=== PATIENT | female | born 1995 ===

== ENCOUNTER 2016-12-18 16:57 | Emergency (ER) | payer MEDICAID, OTHER ==
[2016-12-18 17:34] VITALS: BP 108/71; PULSE 79; RESP 16; TEMP 98; O2SAT 100
--- NOTE | 2016-12-18 17:37 | ED PDOC ---
HPI: CCC, URI, Sore Throat Time Seen by Provider: 12/18/16 17:17 Chief Complaint (Nursing): ENT Problem Chief Complaint (Provider): Sore throat History Per: Patient History/Exam Limitations: no limitations Have you had recent travel within the past 21 days to any of the following countries: [place], [place], [place] or [place]?: No Onset/Duration Of Symptoms: Persistent Current Symptoms Are (Timing): Still Present Location Of Pain: Throat Sick Contacts (Context): None Associated Symptoms: Sore Throat. denies: Fever Additional History Per: Patient Additional Complaint(s): The pt is a 21yo female, presents to the ED for evaluation of sore throat present for the past month. Pt denies any fever or chills. She denies taking any OTC medications for her symptoms. She offers no other medical complaints. Past Medical History Reviewed: Historical Data, Nursing Documentation, Vital Signs Vital Signs: Last Vital Signs Temp 98.0 F 12/18/16 17:32 Pulse 79 12/18/16 17:32 Resp 16 12/18/16 17:32 BP 108/71 12/18/16 17:32 Pulse Ox 100 12/18/16 17:37 - Medical History PMH: No Chronic Diseases - Surgical History Surgical History: No Surg Hx - Family History Family History: States: Unknown Family Hx - Social History Current smoker - smoking cessation education provided: Yes (habitual smoker) Drugs: Cannabis - Home Medications Home Medications: Ambulatory Orders Medication Instructions Recorded Cetirizine HCl [Zyrtec Allergy] 10 mg PO DAILY #30 sgl 12/18/16 Prednisone 50 mg PO DAILY #2 tablet 12/18/16 - Allergies Allergies/Adverse Reactions: Allergies Allergy/AdvReac Type Severity Reaction Status Date / Time No Known Allergies Allergy Verified 12/18/16 17:32 Review of Systems ROS Statement: Except As Marked, All Systems Reviewed And Found Negative Constitutional: Negative for: Fever, Chills ENT: Positive for: Throat Pain Physical Exam - Reviewed Nursing Documentation Reviewed: Yes Vital Signs Reviewed: Yes - Physical Exam Appears: Positive for: Well, Non-toxic, No Acute Distress Head Exam: Positive for: ATRAUMATIC, NORMAL INSPECTION, NORMOCEPHALIC Skin: Positive for: Normal Color ENT: Positive for: Normal ENT Inspection Neck: Positive for: Normal Cardiovascular/Chest: Positive for: Regular Rate, Rhythm Respiratory: Positive for: Normal Breath Sounds. Negative for: Respiratory Distress Neurologic/Psych: Positive for: Alert, Oriented - ECG O2 Sat by Pulse Oximetry: 100 (RA) Pulse Ox Interpretation: Normal Medical Decision Making Medical Decision Making: Time: 1729 Impression: Sore throat r/o strep Plan: -- Throat culture Scribe Attestation: Documented by Eduarda Martínez, acting as a scribe for JOEY Rocha Provider Attestation: All medical record entries made by the Scribe were at my direction and personally dictated by me. I have reviewed the chart and agree that the record accurately reflects my personal performance of the history, physical exam, medical decision making, and the department course for this patient. I have also personally directed, reviewed, and agree with the discharge instructions and disposition. Disposition - Clinical Impression Clinical Impression: Throat pain - Disposition Disposition: Routine/Home Disposition Time: 18:00 Condition: GOOD Prescriptions: Cetirizine HCl [Zyrtec Allergy] 10 mg PO DAILY #30 sgl Prednisone 50 mg PO DAILY #2 tablet Instructions: Pharyngitis (ED)
== END 2016-12-18 18:47 | disposition home or self-care (01) ==
LOC: H.ER 16:57
DX: J02.9 Acute pharyngitis, unspecified (principal)

== ENCOUNTER 2016-12-28 12:44 | Emergency (ER) | payer OTHER ==
[2016-12-28 13:03] VITALS: BP 134/70; RESP 19; TEMP 98.3; O2SAT 100
[2016-12-28] MEDS ORDERED: Naproxen 500 MG TAB PO ONE (13:17)
--- NOTE | 2016-12-28 13:26 | ED PDOC ---
HPI: Chest Pain Time Seen by Provider: 12/28/16 13:08 Chief Complaint (Nursing): ENT Problem Chief Complaint (Provider): Right Sided Chest Pain History Per: Patient History/Exam Limitations: no limitations Onset/Duration Of Symptoms: Other (1 month) Current Symptoms Are (Timing): Still Present Exacerbating Factors: Other (Worsens with deep inspiration and movement.) Additional Complaint(s): Barbara Felix, a 21 year old female, presents to the ED with constant right sided chest pain that worsens with inspiration and movement. The patient further states that the pain also worsens when she lifts both her arms above her head but it is much worse with the right arm. She also reports that she had a throat culture done 2 weeks ago and she is requesting her results. Patient states the sore throat has resolved. Denies history of prior thromboembolic disease, hemoptysis, recent surgery, palpitation, shortness of breath, limb pain, hormonal therapy and control use. - Risk Factors PE Risk Factors: Neg: Recent Major Surgery Past Medical History Reviewed: Historical Data, Nursing Documentation, Vital Signs Vital Signs: Last Vital Signs Temp 98.3 F 12/28/16 13:00 Pulse 98 H 12/28/16 13:00 Resp 19 12/28/16 13:00 BP 134/70 12/28/16 13:00 Pulse Ox 100 12/28/16 13:41 - Medical History PMH: No Chronic Diseases - Family History Family History: States: Unknown Family Hx - Home Medications Home Medications: Ambulatory Orders Medication Instructions Recorded Cetirizine HCl [Zyrtec Allergy] 10 mg PO DAILY #30 sgl 12/18/16 Prednisone 50 mg PO DAILY #2 tablet 12/18/16 Naproxen [Naprosyn] 500 mg PO BID PRN #14 tab 12/28/16 - Allergies Allergies/Adverse Reactions: Allergies Allergy/AdvReac Type Severity Reaction Status Date / Time No Known Allergies Allergy Verified 12/28/16 12:58 Wells Criteria for PE - Wells Criteria for Pulmonary Embolism Clinical Signs and Symptoms of DVT: No P.E is #1 Diagnosis, or Equally Likely: No Heart Rate >100: No Immobilization at least 3 days;Surgery previous 4 weeks: No Previous, objectively diagnosed PE or DVT: No Hemoptysis: No Malignancy w/treatment within 6 months, or palliative: No Total Score: 0 Review of Systems Cardiovascular: Positive for: Chest Pain (Right sided chest pain). Negative for : Palpitations Respiratory: Negative for: Shortness of Breath, Hemoptysis Physical Exam - Reviewed Nursing Documentation Reviewed: Yes Vital Signs Reviewed: Yes - Physical Exam Appears: Positive for: Non-toxic, No Acute Distress Head Exam: Positive for: ATRAUMATIC, NORMOCEPHALIC Skin: Positive for: Normal Color, Warm, Dry. Negative for: Rash (No rash to chest area.) Cardiovascular/Chest: Positive for: Regular Rate, Rhythm. Negative for: Chest Non Tender (Tenderness to right anterior chest wall.), Murmur, Tachycardia Respiratory: Positive for: Normal Breath Sounds. Negative for: Wheezing, Respiratory Distress Extremity: Negative for: Calf Tenderness (b/l) - ECG ECG: Positive for: Interpreted By Me ECG Rhythm: Positive for: Sinus Rhythm. Negative for: ST/T Changes Rate: 88 O2 Sat by Pulse Oximetry: 100 (RA) Pulse Ox Interpretation: Normal - Radiology X-Ray: Interpreted by Me (CXR) X-Ray Interpretation: No Acute Disease - Progress ED Course And Treament: Pt. instructed to f/u with [facility] for further evaluation but is to return to ED immediately if symptoms worsen or persist. Medical Decision Making Medical Decision Makin:08 Initial Impression: 21 year old female presenting with right sided chest pain Initial Plan: * Upreg * CXR (PA&LAT) * Naproxen 500mg PO Scribe Attestation Documented by Delfina Dia acting as a scribe for Richmond Vieira PA-C. Scribe Attestation All medical record entries made by the Scribe were at my direction and personally dictated by me. I have reviewed the chart and agree that the record accurately reflects my personal performance of the history, physical exam, medical decision making, and the department course for this patient. I have also personally directed, reviewed, and agree with the discharge instructions and disposition. Disposition - Clinical Impression Clinical Impression: Chest wall pain - Patient ED Disposition Is Patient to be Admitted: No - Disposition Referrals: [facility] [Outside] Disposition: Routine/Home Disposition Time: 14:00 Condition: STABLE Prescriptions: Naproxen [Naprosyn] 500 mg PO BID PRN #14 tab PRN Reason: Pain Instructions: Chest Wall Pain (ED) Print Language: EMIRATI
[2016-12-28 14:01] VITALS: PULSE 88
--- NOTE | 2016-12-28 14:59 | RAD ---
HISTORY: chest pain COMPARISON: No prior. TECHNIQUE: Chest PA and lateral FINDINGS: LUNGS: No active pulmonary disease. PLEURA: No significant pleural effusion identified. No pneumothorax apparent. CARDIOVASCULAR: Normal. OSSEOUS STRUCTURES: No significant abnormalities. VISUALIZED UPPER ABDOMEN: Normal. OTHER FINDINGS: None. IMPRESSION: No active disease.
== END 2016-12-28 15:24 | disposition home or self-care (01) ==
LOC: H.ER 12:44
DX: R07.89 Other chest pain (principal); M25.511 Pain in right shoulder

== ENCOUNTER 2017-03-21 23:47 | Emergency (ER) | payer OTHER ==
[2017-03-21 23:57] VITALS: BP 130/86; PULSE 76; RESP 18; TEMP 98.4; O2SAT 100
--- NOTE | 2017-03-22 00:19 | ED PDOC ---
HPI: General Adult Time Seen by Provider: 03/22/17 00:00 Chief Complaint (Nursing): Rib Injury Chief Complaint (Provider): Rib Injury History Per: Patient History/Exam Limitations: no limitations Onset/Duration Of Symptoms: Days (1x day) Current Symptoms Are (Timing): Still Present Severity: Moderate Additional Complaint(s): 21 year old female with no pertinent medical history presents to the ED with complaints of right rib cage pain that started today. She reports that 1x month ago, she was squeezed too hard and felt a crack and pain in her left rib cage. Today she had a choking episode in which she felt the same pain in her left rib. She reports having pain in the area when she inhales deeply. She denies having any other medical complaints. PMD: Not provided. Past Medical History Reviewed: Historical Data, Nursing Documentation, Vital Signs Vital Signs: Last Vital Signs Temp 98.4 F 03/21/17 23:54 Pulse 76 03/21/17 23:54 Resp 18 03/21/17 23:54 BP 130/86 03/21/17 23:54 Pulse Ox 100 03/22/17 00:50 - Medical History PMH: No Chronic Diseases - Family History Family History: States: No Known Family Hx - Social History Alcohol: None Drugs: Denies - Home Medications Home Medications: Ambulatory Orders Medication Instructions Recorded Cetirizine HCl [Zyrtec Allergy] 10 mg PO DAILY #30 sgl 12/18/16 Prednisone 50 mg PO DAILY #2 tablet 12/18/16 Naproxen [Naprosyn] 500 mg PO BID PRN #14 tab 12/28/16 Cyclobenzaprine [Cyclobenzaprine 10 mg PO BID #15 tab 03/22/17 HCl] Ibuprofen [Motrin Tab] 600 mg PO Q6 #30 tab 03/22/17 - Allergies Allergies/Adverse Reactions: Allergies Allergy/AdvReac Type Severity Reaction Status Date / Time No Known Allergies Allergy Verified 12/28/16 12:58 Review of Systems ROS Statement: Except As Marked, All Systems Reviewed And Found Negative Musculoskeletal: Positive for: Other (left rib cage pain) Physical Exam - Reviewed Nursing Documentation Reviewed: Yes Vital Signs Reviewed: Yes - Physical Exam Appears: Positive for: Well, Non-toxic, No Acute Distress Head Exam: Positive for: ATRAUMATIC, NORMOCEPHALIC Skin: Positive for: Normal Color Cardiovascular/Chest: Positive for: Regular Rate, Rhythm, Chest Non Tender Respiratory: Positive for: Normal Breath Sounds. Negative for: Respiratory Distress, Other (no crepitus, no bruising) Neurologic/Psych: Positive for: Alert, Oriented (3x) - ECG O2 Sat by Pulse Oximetry: 100 (RA) Pulse Ox Interpretation: Normal Medical Decision Making Medical Decision Makin:00 Initial impression: 21 year old female with rib contusion. Initial plan: * XRay ribs 2 views lt * flexeril 10 mg PO * motrin tab 600 mg PO * reevaluation 00:50 Neg CXR, patient feeling better, will d/c home. Return precautions given. Scribe Attestation: Documented by Delia Meyer, acting as a scribe for Nabil Lomas MD. Provider Scribe Attestation: All medical record entries made by the Scribe were at my direction and personally dictated by me. I have reviewed the chart and agree that the record accurately reflects my personal performance of the history, physical exam, medical decision making, and the department course for this patient. I have also personally directed, reviewed, and agree with the discharge instructions and disposition. Disposition - Clinical Impression Clinical Impression: Rib pain - Disposition Referrals: [facility] [Outside] Disposition: Routine/Home Disposition Time: 00:51 Condition: STABLE Prescriptions: Cyclobenzaprine [Cyclobenzaprine HCl] 10 mg PO BID #15 tab Ibuprofen [Motrin Tab] 600 mg PO Q6 #30 tab Forms: [employer] (Tuvaluan)
--- NOTE | 2017-03-22 10:51 | RAD ---
PROCEDURE: Radiographs of the Chest and Left Ribs. HISTORY: Left rib pain COMPARISON: 12/28/2016. TECHNIQUE: Frontal radiograph of the chest and multiple oblique radiographs of the left ribs were obtained. FINDINGS: LEFT RIBS: No acute fracture or focal lesion visualized. LUNGS: The lungs are well inflated and clear. PLEURA: No pneumothorax or pleural fluid. CARDIOVASCULAR: Normal sized heart. No pulmonary vascular congestion. OTHER FINDINGS: None. IMPRESSION: No acute rib fracture. Clear lungs.
== END 2017-03-22 01:32 | disposition home or self-care (01) ==
LOC: H.ER 23:47
DX: R07.82 Intercostal pain (principal)

== ENCOUNTER 2017-08-16 18:28 | Emergency (ER) | payer OTHER ==
[2017-08-16 19:30] VITALS: BP 117/86; PULSE 102; RESP 18; TEMP 98.3; O2SAT 99
[2017-08-16] MEDS ORDERED: Naproxen 500 MG TAB PO STA (20:25)
--- NOTE | 2017-08-16 20:30 | ED PDOC ---
Upper Extremity Pain/Injury Time Seen by Provider: 08/16/17 19:35 Chief Complaint (Nursing): Upper Extremity Problem/Injury Chief Complaint (Provider): Wrist pain History Per: Patient History/Exam Limitations: no limitations Onset/Duration Of Symptoms: Days (x3) Current Symptoms Are (Timing): Still Present Additional Complaint(s): Patient presents complaining of left wrist pain for the past 2-3 days. States she started playing the guitar for 30 minutes daily. 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 No direct trauma or injury. (-) numbness; (-) weakness. Additionally, patient reports left mid back pain which she has had intermittently in the past. Current episode began 2 days ago. No trauma or injury. Otherwise: (-) paresthesias, (-) weakness, (-) acute bowel or bladder dysfunction, (-) fever. PMD: None Past Medical History Reviewed: Historical Data, Nursing Documentation, Vital Signs Vital Signs: Last Vital Signs Temp 98.3 F 08/16/17 19:25 Pulse 102 H 08/16/17 19:25 Resp 18 08/16/17 19:25 BP 117/86 08/16/17 19:25 Pulse Ox 99 08/16/17 19:25 - Medical History PMH: No Chronic Diseases - Family History Family History: States: Unknown Family Hx - Home Medications Home Medications: Ambulatory Orders Medication Instructions Recorded Cetirizine HCl [Zyrtec Allergy] 10 mg PO DAILY #30 sgl 12/18/16 Prednisone 50 mg PO DAILY #2 tablet 12/18/16 Naproxen [Naprosyn] 500 mg PO BID PRN #14 tab 12/28/16 Cyclobenzaprine [Cyclobenzaprine 10 mg PO BID #15 tab 03/22/17 HCl] Ibuprofen [Motrin Tab] 600 mg PO Q6 #30 tab 03/22/17 Naproxen 500 mg PO BID #30 tab 08/16/17 - Allergies Allergies/Adverse Reactions: Allergies Allergy/AdvReac Type Severity Reaction Status Date / Time No Known Allergies Allergy Verified 08/16/17 19:25 Review of Systems ROS Statement: Except As Marked, All Systems Reviewed And Found Negative Constitutional: Negative for: Fever Genitourinary Female: Negative for: Incontinence Musculoskeletal: Positive for: Back Pain, Hand Pain (left wrist) Neurological: Negative for: Weakness, Numbness (or paresthesias) Physical Exam - Reviewed Nursing Documentation Reviewed: Yes Vital Signs Reviewed: Yes - Physical Exam Comments: GENERAL APPEARANCE: Patient is awake, alert, oriented x 3, in no acute distress. SKIN: Warm, dry; (-) cyanosis. EYES: (-) conjunctival pallor. ENMT: Mucous membranes moist. NECK: (-) tenderness, (-) stiffness, (-) lymphadenopathy. CHEST AND RESPIRATORY: (-) rales, (-) rhonchi, (-) wheezes; breath sounds equal bilaterally. HEART AND CARDIOVASCULAR: (-) irregularity; (-) murmur, (-) gallop. ABDOMEN AND GI: Soft; (-) tenderness; (-) palpable mass. BACK: (-) muscular spasm, (-) direct bony tenderness, (-) deformity. Straight leg raising (-) bilaterally. WRIST: (-) Tenderness, (-) swelling, (-) ecchymosis, (-) deformity. (-) snuff -box tenderness. (-) distal neurovascular deficit. Elbow, hand and digits: (- ) tenderness with full ROM NEURO AND PSYCH: Mental status as above. Intact sensation bilaterally; normal strength in extension of the knees, plantar and dorsiflexion of the toes. DTRs symmetric. - ECG O2 Sat by Pulse Oximetry: 99 (RA) Pulse Ox Interpretation: Normal Medical Decision Making Medical Decision Making: Time: 20:25 Plan: * Naproxen 500mg x1 Pre-made cock-up splint applied to left wrist. Based on history and exam, plan will be for outpatient follow up. Advised to follow up with the clinic in 1-2 days without fail. Advised to take medication as prescribed. Return to the emergency room at any time for any new or worsening symptoms. Patient states she fully agrees with and understands discharge instructions. States that she agrees with the plan and disposition. Verbalized and repeated discharge instructions and plan. I have given the patient opportunity to ask any additional questions. Scribe Attestation: Documented by Kiley Coats, acting as a scribe for Ashley Gordon PA-C Provider Scribe Attestation: All medical record entries made by the Scribe were at my direction and personally dictated by me. I have reviewed the chart and agree that the record accurately reflects my personal performance of the history, physical exam, medical decision making, and the department course for this patient. I have also personally directed, reviewed, and agree with the discharge instructions and disposition. Disposition - Clinical Impression Clinical Impression: Wrist pain, Back pain - Patient ED Disposition Is Patient to be Admitted: No Counseled Patient/Family Regarding: Diagnosis, Need For Followup, Rx Given - Disposition Referrals: [facility] [Outside] Luis Herrera III, MD [Staff Provider] - Disposition: Routine/Home Disposition Time: 20:33 Condition: STABLE Additional Instructions: Thank you for letting us take care of you today. You were treated for wrist pain , back pain. The emergency medical care you received today was directed at your acute symptoms. If you were prescribed any medication, please fill it and take as directed. It may take several days for your symptoms to resolve. Return to the Emergency Department if your symptoms worsen, do not improve, or if you have any other problems. Please contact one of the physicians/clinics you have been referred to that are listed on the Patient Visit Information form that is included in your discharge packet. Bring any paperwork you were given at discharge with you along with any medications you are taking to your follow up visit. Our treatment cannot replace ongoing medical care by a primary care provider (PCP) outside of the emergency department. Thank you for allowing the [employer] team to be part of your care today. Prescriptions: Naproxen 500 mg PO BID #30 tab Instructions: Carpal Tunnel Syndrome (ED), Acute Low Back Pain (ED), Arthralgia (ED) Forms: [employer] (Slovenian), [facility] ED School/Work Excuse - POA Present On Arrival: None - PA / ORDER ENTRY SPECIALIST / Resident Statement MD/DO has reviewed & agrees with the documentation as recorded.
[2017-08-16] MEDS ORDERED: Naproxen 500 MG TAB PO ONE (20:43)
== END 2017-08-16 21:00 | disposition home or self-care (01) ==
LOC: H.ER 18:28
DX: G56.02 Carpal tunnel syndrome, left upper limb (principal); M54.5 Low back pain

== ENCOUNTER 2017-11-08 19:00 | Emergency (ER) | payer OTHER ==
[2017-11-08 19:11] VITALS: RESP 16; O2SAT 100
[2017-11-08] MEDS ORDERED: Lidocaine 5% Patch TD STA (20:16)
--- NOTE | 2017-11-08 20:33 | ED PDOC ---
Lower Extremity Pain/Injury Time Seen by Provider: 11/08/17 19:16 Chief Complaint (Nursing): Lower Extremity Problem/Injury Chief Complaint (Provider): Lower Extremity Problem/Injury History Per: Patient History/Exam Limitations: no limitations Onset/Duration Of Symptoms: Days (x3) Current Symptoms Are (Timing): Still Present Additional Complaint(s): 22 year old female presents to the emergency department for gradual onset of left leg pain, localized to her posterior left thigh and knee, ongoing for 3 days. She reports hiking yesterday, in which, she developed numbness to her posterior left calf but has since resolved on its own. 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 Patient also reports experiencing lower back pain for 2-3 months and evaluated by xrays " that were normal". She was recommended at the time to practice back exercises and to resume regular activities. PMD: none provided Past Medical History Reviewed: Historical Data, Nursing Documentation, Vital Signs Vital Signs: Last Vital Signs Temp 98.0 F 11/08/17 19:09 Pulse 107 H 11/08/17 19:09 Resp 16 11/08/17 19:09 BP 138/76 11/08/17 19:09 Pulse Ox 100 11/08/17 19:09 - Medical History PMH: Migraine - Surgical History Surgical History: No Surg Hx - Family History Family History: States: Unknown Family Hx - Social History Alcohol: Occasional Drugs: Cannabis - Home Medications Home Medications: Ambulatory Orders Medication Instructions Recorded Cetirizine HCl [Zyrtec Allergy] 10 mg PO DAILY #30 sgl 12/18/16 Prednisone 50 mg PO DAILY #2 tablet 12/18/16 Naproxen [Naprosyn] 500 mg PO BID PRN #14 tab 12/28/16 Cyclobenzaprine [Cyclobenzaprine 10 mg PO BID #15 tab 03/22/17 HCl] Ibuprofen [Motrin Tab] 600 mg PO Q6 #30 tab 03/22/17 Naproxen 500 mg PO BID #30 tab 08/16/17 Acetaminophen [Tylenol Extra 1,000 mg PO Q6 PRN #100 tablet 11/08/17 Strength] Cyclobenzaprine [Flexeril] 5 mg PO Q8 PRN #15 tab 11/08/17 Ketorolac Tromethamine [Toradol] 10 mg PO Q8 PRN #30 tab 11/08/17 Lidocaine 5% [Lidoderm] 1 ea TD DAILY PRN #10 patch 11/08/17 - Allergies Allergies/Adverse Reactions: Allergies Allergy/AdvReac Type Severity Reaction Status Date / Time No Known Allergies Allergy Verified 11/08/17 19:09 Review of Systems ROS Statement: Except As Marked, All Systems Reviewed And Found Negative Musculoskeletal: Positive for: Back Pain (lower), Leg Pain (left-sided knee and thigh) Neurological: Positive for: Numbness (left posterior calf-resolved) Physical Exam - Reviewed Nursing Documentation Reviewed: Yes Vital Signs Reviewed: Yes - Physical Exam Appears: Positive for: Non-toxic, No Acute Distress Head Exam: Positive for: ATRAUMATIC, NORMOCEPHALIC Skin: Positive for: Warm, Dry Eye Exam: Positive for: EOMI, PERRL Respiratory: Negative for: Accessory Muscle Use, Respiratory Distress Gastrointestinal/Abdominal: Positive for: Soft. Negative for: Tenderness Back: Positive for: Vertebral Tenderness (paraspinal, midline, lumbar (mildly) to palpation), Other ((+)left-sided straight leg raise without step-off or crepitus). Negative for: L CVA Tenderness, R CVA Tenderness Extremity: Positive for: Normal ROM (5/5 strenth with sensation intact lower ext.). Negative for: Deformity Neurologic/Psych: Positive for: Alert, Gait (steady). Negative for: Motor/ Sensory Deficits - ECG O2 Sat by Pulse Oximetry: 100 (RA) Pulse Ox Interpretation: Normal Medical Decision Making Medical Decision Making: Initial Impression: Lumbar Radiculopathy Initial Plan: * Urine * Urine dipstick * Flexeril 5mg PO * Lidoderm * Toradol 30mg IM * Tylenol 975mg PO 2100 Pt feels better. Eager to go home. Scribe Attestation: Documented by Nicky Boggs, acting as a scribe for Fatou Avalos MD. Provider Scribe Attestation: All medical record entries made by the Scribe were at my direction and personally dictated by me. I have reviewed the chart and agree that the record accurately reflects my personal performance of the history, physical exam, medical decision making, and the department course for this patient. I have also personally directed, reviewed, and agree with the discharge instructions and disposition. Disposition - Clinical Impression Clinical Impression: Lumbar radiculopathy Counseled Patient/Family Regarding: Studies Performed, Diagnosis, Need For Followup, Rx Given - Disposition Referrals: [facility] [Outside] (FOLLOW UP WITH YOUR DOCTOR OR [facility] IN 2-3 DAYS) Disposition: Routine/Home Disposition Time: 23:05 Condition: IMPROVED Additional Instructions: FOLLOW UP WITH YOUR DOCTOR IN 2-3 DAYS FOR REEVALUATION. YOU MAY NEED PHYSICAL THERAPY FOR FURTHER MANAGEMENT. Prescriptions: Acetaminophen [Tylenol Extra Strength] 1,000 mg PO Q6 PRN #100 tablet PRN Reason: FEVER OR PAIN Cyclobenzaprine [Flexeril] 5 mg PO Q8 PRN #15 tab PRN Reason: muscle spasm Ketorolac Tromethamine [Toradol] 10 mg PO Q8 PRN #30 tab PRN Reason: PAIN Lidocaine 5% [Lidoderm] 1 ea TD DAILY PRN #10 patch PRN Reason: PAIN Instructions: Radiculopathy, Low Back Pain in Adults Forms: [employer] (Eritrean), [facility] ED School/Work Excuse
[2017-11-08] MEDS ORDERED: Lidocaine 5% Patch TD ONE (20:52)
[2017-11-09 01:40] VITALS: BP 122/71; PULSE 86; TEMP 98
== END 2017-11-08 23:15 | disposition home or self-care (01) ==
LOC: H.ER 19:00
DX: M54.16 Radiculopathy, lumbar region (principal)
CPT/HCPCS: 81025; 96372; 99284; J1885

== ENCOUNTER 2018-03-05 14:09 | Emergency (ER) | payer OTHER ==
[2018-03-05 14:18] VITALS: BP 120/79; PULSE 93; RESP 18; TEMP 98.6; O2SAT 99
--- NOTE | 2018-03-05 14:43 | ED PDOC ---
HPI: General Adult Time Seen by Provider: 03/05/18 14:23 Chief Complaint (Nursing): Headache Chief Complaint (Provider): Fatigue, nausea History Per: Patient History/Exam Limitations: no limitations Current Symptoms Are (Timing): Still Present Additional Complaint(s): 22 year old female, with a past medical history of migraines, presents to the ED complaining of fatigue and nausea associated with pressure like feeling to the right side of head. Patient reports she normally suffers from migraines towards the front and top of head but pain is now towards the right. She states she does not remember her LNMP. 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 PMD: none provided Past Medical History Reviewed: Historical Data, Nursing Documentation, Vital Signs Vital Signs: Last Vital Signs Temp 98.6 F 03/05/18 14:17 Pulse 93 H 03/05/18 14:17 Resp 18 03/05/18 14:17 BP 120/79 03/05/18 14:17 Pulse Ox 99 03/05/18 14:49 - Medical History PMH: Migraine - Surgical History Surgical History: No Surg Hx - Family History Family History: States: Unknown Family Hx - Home Medications Home Medications: Ambulatory Orders Medication Instructions Recorded Cetirizine HCl [Zyrtec Allergy] 10 mg PO DAILY #30 sgl 12/18/16 Prednisone 50 mg PO DAILY #2 tablet 12/18/16 Naproxen [Naprosyn] 500 mg PO BID PRN #14 tab 12/28/16 Cyclobenzaprine [Cyclobenzaprine 10 mg PO BID #15 tab 03/22/17 HCl] Ibuprofen [Motrin Tab] 600 mg PO Q6 #30 tab 03/22/17 Naproxen 500 mg PO BID #30 tab 08/16/17 Acetaminophen [Tylenol Extra 1,000 mg PO Q6 PRN #100 tablet 11/08/17 Strength] Cyclobenzaprine [Flexeril] 5 mg PO Q8 PRN #15 tab 11/08/17 Ketorolac Tromethamine [Toradol] 10 mg PO Q8 PRN #30 tab 11/08/17 Lidocaine 5% [Lidoderm] 1 ea TD DAILY PRN #10 patch 11/08/17 - Allergies Allergies/Adverse Reactions: Allergies Allergy/AdvReac Type Severity Reaction Status Date / Time No Known Allergies Allergy Verified 03/05/18 14:15 Review of Systems ROS Statement: Except As Marked, All Systems Reviewed And Found Negative Gastrointestinal: Positive for: Nausea Neurological: Positive for: Headache, Other (Fatigue) Physical Exam - Reviewed Nursing Documentation Reviewed: Yes Vital Signs Reviewed: Yes - Physical Exam Appears: Positive for: Non-toxic, No Acute Distress Head Exam: Positive for: ATRAUMATIC, NORMOCEPHALIC Skin: Positive for: Normal Color, Warm, Dry Eye Exam: Positive for: Normal appearance Neck: Positive for: Normal, Painless ROM Cardiovascular/Chest: Negative for: Bradycardia, Tachycardia Respiratory: Negative for: Respiratory Distress Extremity: Positive for: Normal ROM Neurologic/Psych: Positive for: Alert, Oriented. Negative for: Motor/Sensory Deficits - ECG O2 Sat by Pulse Oximetry: 99 (RA) Pulse Ox Interpretation: Normal Medical Decision Making Medical Decision Making: Initial Impression: Nausea, fatigue, headache Initial Plan: ED urine Tylenol 650mg PO CT normal. Scribe Attestation: Documented by Michael Lepe acting as a scribe for May COOK. Provider Scribe Attestation: All medical record entries made by the Scribe were at my direction and personally dictated by me. I have reviewed the chart and agree that the record accurately reflects my personal performance of the history, physical exam, medical decision making, and the department course for this patient. I have also personally directed, reviewed, and agree with the discharge instructions and disposition. Disposition - Clinical Impression Clinical Impression: Headache - Patient ED Disposition Is Patient to be Admitted: No Counseled Patient/Family Regarding: Diagnosis, Need For Followup, Rx Given - Disposition Referrals: [facility] [Outside] Juvenal Hyde MD [Staff Provider] - Disposition: Routine/Home Disposition Time: 16:25 Condition: STABLE Additional Instructions: Tylenol for pain. Instructions: Headache, Adult (DC) Forms: [employer] (Montenegrin)
--- NOTE | 2018-03-05 16:15 | CT ---
Date of service: 03/05/2018 PROCEDURE: CT HEAD WITHOUT CONTRAST. HISTORY: headaches COMPARISON: None available. TECHNIQUE: Axial computed tomography images were obtained through the head/brain without intravenous contrast. Radiation dose: Total exam DLP = 786.08 mGy-cm. This CT exam was performed using one or more of the following dose reduction techniques: Automated exposure control, adjustment of the mA and/or kV according to patient size, and/or use of iterative reconstruction technique. FINDINGS: HEMORRHAGE: No intracranial hemorrhage. BRAIN: Normal bonds-white matter differentiation and density are appreciated throughout the cerebrum and cerebellum with the brainstem appearing unremarkable as well. There is no mass effect. There is no suspicious extra-axial fluid collection and the midline brain anatomy appears diffusely unremarkable. No atrophy or chronic microvascular ischemic changes. VENTRICLES: Unremarkable. No hydrocephalus. CALVARIUM: Unremarkable. PARANASAL SINUSES: Unremarkable as visualized. No significant inflammatory changes. MASTOID AIR CELLS: Unremarkable as visualized. No inflammatory changes. OTHER FINDINGS: None. IMPRESSION: Unremarkable unenhanced CT of the Head.
== END 2018-03-05 16:41 | disposition home or self-care (01) ==
LOC: H.ER 14:09
DX: R51 Headache (principal)

== ENCOUNTER 2018-04-06 20:11 | Emergency (ER) | payer SELFPAY ==
[2018-04-06 20:19] VITALS: PULSE 86; TEMP 99.2
--- NOTE | 2018-04-06 20:45 | ED PDOC ---
HPI: General Adult Time Seen by Provider: 04/06/18 20:22 Chief Complaint (Nursing): Headache Chief Complaint (Provider): Headache, nausea after hitting head History Per: Patient History/Exam Limitations: no limitations Onset/Duration Of Symptoms: Mins Have you had recent travel within the past 21 days to any of the following countries: [place], [place], [place] or [place]?: No Current Symptoms Are (Timing): Still Present Additional Complaint(s): 22 yo female with history of migraines presents for evaluation of head injury. Pt states she was sitting in a chair and remembers the chair tipping back and hitting her head. Pt state she than remember everything going black than opening her eyes and feeling disoriented. Pt reports headache, nausea and dry heaving at home. Pt took tylenol [employer] [employer] [employer]. Past Medical History Reviewed: Historical Data, Nursing Documentation, Vital Signs Vital Signs: Last Vital Signs Temp 99.2 F 04/06/18 20:16 Pulse 86 04/06/18 20:16 Resp 18 04/06/18 20:16 BP 153/82 H 04/06/18 20:16 Pulse Ox 100 04/06/18 20:47 - Medical History PMH: Migraine - Surgical History Surgical History: No Surg Hx - Family History Family History: States: Unknown Family Hx - Living Arrangements Living Arrangements: With Family - Social History Current smoker - smoking cessation education provided: No - Home Medications Home Medications: Ambulatory Orders Medication Instructions Recorded Cetirizine HCl [Zyrtec Allergy] 10 mg PO DAILY #30 sgl 12/18/16 Prednisone 50 mg PO DAILY #2 tablet 12/18/16 Naproxen [Naprosyn] 500 mg PO BID PRN #14 tab 12/28/16 Cyclobenzaprine [Cyclobenzaprine 10 mg PO BID #15 tab 03/22/17 HCl] Ibuprofen [Motrin Tab] 600 mg PO Q6 #30 tab 03/22/17 Naproxen 500 mg PO BID #30 tab 08/16/17 Acetaminophen [Tylenol Extra 1,000 mg PO Q6 PRN #100 tablet 11/08/17 Strength] Cyclobenzaprine [Flexeril] 5 mg PO Q8 PRN #15 tab 11/08/17 Ketorolac Tromethamine [Toradol] 10 mg PO Q8 PRN #30 tab 11/08/17 Lidocaine 5% [Lidoderm] 1 ea TD DAILY PRN #10 patch 11/08/17 - Allergies Allergies/Adverse Reactions: Allergies Allergy/AdvReac Type Severity Reaction Status Date / Time No Known Allergies Allergy Verified 04/06/18 20:15 Review of Systems ROS Statement: Except As Marked, All Systems Reviewed And Found Negative Constitutional: Negative for: Fever, Chills Cardiovascular: Negative for: Chest Pain Respiratory: Negative for: Cough, Shortness of Breath Gastrointestinal: Positive for: Nausea, Vomiting. Negative for: Abdominal Pain Neurological: Positive for: Headache, Dizziness Physical Exam - Reviewed Nursing Documentation Reviewed: Yes Vital Signs Reviewed: Yes - Physical Exam Appears: Positive for: Well, Non-toxic, No Acute Distress Head Exam: Positive for: ATRAUMATIC, NORMAL INSPECTION, NORMOCEPHALIC Skin: Positive for: Normal Color, Warm, DRY Eye Exam: Positive for: EOMI, Normal appearance, PERRL ENT: Positive for: Normal ENT Inspection Neck: Positive for: Normal Respiratory: Negative for: Accessory Muscle Use, Respiratory Distress Back: Positive for: Normal Inspection Extremity: Positive for: Normal ROM. Negative for: Tenderness, Deformity, Swelling Neurologic/Psych: Positive for: Alert, Gait. Negative for: Aphasia, Facial Droop - ECG O2 Sat by Pulse Oximetry: 100 Disposition - Clinical Impression Clinical Impression: Head injury - Patient ED Disposition Is Patient to be Admitted: No Counseled Patient/Family Regarding: Diagnosis, Need For Followup - Disposition Referrals: [facility] [Outside] Disposition: Routine/Home Disposition Time: 23:06 Condition: GOOD Instructions: Concussion in Adults Forms: [employer] (Canadian)
[2018-04-07 06:45] VITALS: BP 140/80; RESP 16; O2SAT 99
--- NOTE | 2018-04-07 10:23 | CT ---
Date of service: 04/06/2018 PROCEDURE: CT HEAD WITHOUT CONTRAST. HISTORY: head injury, LOC COMPARISON: CT head dated 03/05/2018 TECHNIQUE: Axial computed tomography images were obtained through the head/brain without intravenous contrast. Radiation dose: Total exam DLP = 760.1 mGy-cm. This CT exam was performed using one or more of the following dose reduction techniques: Automated exposure control, adjustment of the mA and/or kV according to patient size, and/or use of iterative reconstruction technique. FINDINGS: HEMORRHAGE: No intracranial hemorrhage. BRAIN: No mass effect or edema. No atrophy or chronic microvascular ischemic changes. VENTRICLES: Unremarkable. No hydrocephalus. CALVARIUM: Unremarkable. PARANASAL SINUSES: Unremarkable as visualized. No significant inflammatory changes. MASTOID AIR CELLS: Unremarkable as visualized. No inflammatory changes. OTHER FINDINGS: None. IMPRESSION: No acute intracranial pathology. No significant interval change.
== END 2018-04-06 23:06 | disposition home or self-care (01) ==
LOC: H.ER 20:11
DX: S09.90XA Unspecified injury of head, initial encounter (principal); W19.XXXA Unspecified fall, initial encounter; Y92.89 Other specified places as the place of occurrence of the external cause

== ENCOUNTER 2018-05-18 17:53 | Emergency (ER) | payer OTHER ==
[2018-05-18 18:00] VITALS: BP 103/61; PULSE 84; RESP 18; TEMP 98.8; O2SAT 100
--- NOTE | 2018-05-18 18:53 | ED PDOC ---
HPI: General Adult Time Seen by Provider: 05/18/18 18:02 Chief Complaint (Nursing): Chest Pain Chief Complaint (Provider): chest pain History Per: Patient History/Exam Limitations: no limitations Onset/Duration Of Symptoms: Days (1 year) Additional Complaint(s): Barbara Felix, a 22 year old female with no significant past medical history, presents to the ED with chest pain onset 1 year ago. Patient complains of sternal chest pain described as a burning sensation on and off for a year. She states that last month it began to radiate to the right side of her chest. Patient reports that it feels better when she ices her chest and worsens when she smokes marijuana which she does every day. She states that she stopped smoking for a month to see if the pain improved but it did not. Patient denies fever chills or shortness of breath. She was seen in the ER in the past and had a normal CXR at that time. A month ago she was seen at another facility where she had a CXR that was normal. No further medical complaints. Past Medical History Reviewed: Historical Data, Nursing Documentation, Vital Signs Vital Signs: Last Vital Signs Temp 98.8 F 05/18/18 17:57 Pulse 84 05/18/18 17:57 Resp 18 05/18/18 17:57 BP 103/61 05/18/18 17:57 Pulse Ox 100 05/18/18 17:57 - Medical History PMH: Migraine - Family History Family History: States: Unknown Family Hx - Home Medications Home Medications: Ambulatory Orders Medication Instructions Recorded Cetirizine HCl [Zyrtec Allergy] 10 mg PO DAILY #30 sgl 12/18/16 Prednisone 50 mg PO DAILY #2 tablet 12/18/16 Naproxen [Naprosyn] 500 mg PO BID PRN #14 tab 12/28/16 Cyclobenzaprine [Cyclobenzaprine 10 mg PO BID #15 tab 03/22/17 HCl] Ibuprofen [Motrin Tab] 600 mg PO Q6 #30 tab 03/22/17 Naproxen 500 mg PO BID #30 tab 08/16/17 Acetaminophen [Tylenol Extra 1,000 mg PO Q6 PRN #100 tablet 11/08/17 Strength] Cyclobenzaprine [Flexeril] 5 mg PO Q8 PRN #15 tab 11/08/17 Ketorolac Tromethamine [Toradol] 10 mg PO Q8 PRN #30 tab 11/08/17 Lidocaine 5% [Lidoderm] 1 ea TD DAILY PRN #10 patch 11/08/17 Famotidine [Pepcid] 20 mg PO DAILY #14 tab 05/18/18 - Allergies Allergies/Adverse Reactions: Allergies Allergy/AdvReac Type Severity Reaction Status Date / Time No Known Allergies Allergy Verified 04/06/18 20:15 Review of Systems ROS Statement: Except As Marked, All Systems Reviewed And Found Negative Constitutional: Negative for: Fever, Chills Cardiovascular: Positive for: Chest Pain Respiratory: Negative for: Shortness of Breath Physical Exam - Reviewed Nursing Documentation Reviewed: Yes Vital Signs Reviewed: Yes - Physical Exam Appears: Positive for: Well, Non-toxic, No Acute Distress Head Exam: Positive for: ATRAUMATIC, NORMAL INSPECTION, NORMOCEPHALIC Skin: Positive for: Normal Color, Warm, DRY Eye Exam: Positive for: Normal appearance ENT: Positive for: Normal ENT Inspection Neck: Positive for: Normal Cardiovascular/Chest: Negative for: Chest Non Tender (right lateral chest wall tenderness), Bradycardia, Tachycardia Respiratory: Positive for: CNT, Normal Breath Sounds Back: Positive for: Normal Inspection Extremity: Positive for: Normal ROM Neurologic/Psych: Positive for: Alert, Oriented Comments: Breast Exam: right breast has no masses No bruising or lesions on skin - ECG O2 Sat by Pulse Oximetry: 100 (RA) Pulse Ox Interpretation: Normal Medical Decision Making Medical Decision Making: Time: 18:02 Initial Impression: Initial Plan: --Urine --Cxr -offered repeat CXR which patient declined and stated she would like to follow up with a junior network administrator -discussed acid reflux as a possible cause of chest pain, given a trial of pepcid Scribe Attestation: Documented by Ruth Wilder, acting as a scribe for May J Kotuski PA-C. Provider Scribe Attestation: All medical record entries made by the Scribe were at my direction and personally dictated by me. I have reviewed the chart and agree that the record accurately reflects my personal performance of the history, physical exam, medical decision making, and the department course for this patient. I have also personally directed, reviewed, and agree with the discharge instructions and disposition. Disposition - Clinical Impression Clinical Impression: Chest wall pain - Disposition Referrals: Luis Neri MD [Staff Provider] - Naeem Mayorga MD [Staff Provider] - Disposition: Routine/Home Disposition Time: 18:53 Condition: GOOD Prescriptions: Famotidine [Pepcid] 20 mg PO DAILY #14 tab Instructions: Chest Pain That Is Not Caused by the Heart (DC) Forms: [employer] (Polish)
== END 2018-05-18 19:01 | disposition home or self-care (01) ==
LOC: H.ER 17:53
DX: R07.89 Other chest pain (principal); F12.90 Cannabis use, unspecified, uncomplicated